=== PATIENT | male | born 1985 | race American Indian/Alaskan Native ===

== ENCOUNTER 2017-03-11 10:52 | Emergency (ER) | payer OTHER ==
--- NOTE | 2017-03-11 11:45 | XRay Report ---
LEFT KNEE THREE VIEWS: 03/11/17 10:52:00 CLINICAL: Left knee pain and swelling. FINDINGS: No fracture or dislocation. Mild patellofemoral joint arthritis with small osteophytes. The medial and lateral joint spaces are normal. No joint effusion. The soft tissues are normal. IMPRESSION: Patellofemoral joint arthritis.
--- NOTE | 2017-03-11 14:28 | Emergency Department Report ---
ED Lower Extremity HPI - General Chief Complaint: Extremity Injury, Lower Stated Complaint: SWOLLEN KNEE Time Seen by Provider: 03/11/17 13:50 Source: patient Mode of arrival: Ambulatory Limitations: No Limitations - History of Present Illness Initial Comments: Patient comes in the ER today with complaints of left knee pain. Patient states that he was skating 2 days ago and thinks he injured his left knee when he fell. Patient has been able to walk on his knee since but states that is very unstable and feel like he wants to give out on him when he gets out of his car or when he goes up and down steps. Complaint: knee injury -: Sudden, days(s) (2) - Related Data Previous Rx's Medication Instructions Recorded Last Taken Type Naproxen [Naprosyn TAB] 500 mg PO BID #20 tablet 03/11/17 Unknown Rx traMADol [Ultram 50 MG tab] 50 mg PO Q6HR PRN #20 tablet 03/11/17 Unknown Rx Allergies Allergy/AdvReac Type Severity Reaction Status Date / Time No Known Allergies Allergy Verified 03/11/17 11:04 ED Review of Systems ROS: Stated complaint: SWOLLEN KNEE Other details as noted in HPI Constitutional: denies: chills, fever Eyes: denies: eye pain, eye discharge, vision change ENT: denies: ear pain, throat pain Respiratory: denies: cough, shortness of breath, wheezing Cardiovascular: denies: chest pain, palpitations Endocrine: no symptoms reported Gastrointestinal: denies: abdominal pain, nausea, diarrhea Genitourinary: denies: urgency, dysuria Musculoskeletal: joint swelling, arthralgia. denies: back pain Skin: denies: rash, lesions Neurological: denies: headache, weakness, paresthesias Psychiatric: denies: anxiety, depression Hematological/Lymphatic: denies: easy bleeding, easy bruising ED Past Medical Hx - Past Medical History Previous Medical History?: No Additional medical history: rhabdomylosis - Surgical History Past Surgical History?: No - Social History Smoking Status: Never Smoker Substance Use Type: None - Medications Home Medications: Home Medications Medication Instructions Recorded Confirmed Last Taken Type Naproxen [Naprosyn TAB] 500 mg PO BID #20 tablet 03/11/17 Unknown Rx traMADol [Ultram 50 MG tab] 50 mg PO Q6HR PRN #20 tablet 03/11/17 Unknown Rx ED Physical Exam - General Limitations: No Limitations General appearance: alert, in no apparent distress - Head Head exam: Present: atraumatic, normocephalic - Eye Eye exam: Present: normal appearance - ENT ENT exam: Present: mucous membranes moist - Neck Neck exam: Present: normal inspection - Respiratory Respiratory exam: Present: normal lung sounds bilaterally. Absent: respiratory distress - Cardiovascular Cardiovascular Exam: Present: regular rate, normal rhythm. Absent: systolic murmur, diastolic murmur, rubs, gallop - GI/Abdominal GI/Abdominal exam: Present: soft, normal bowel sounds - Rectal Rectal exam: Present: deferred - Extremities Exam Extremities exam: Present: normal inspection, tenderness (tenderness noted more on lateral collateral ligament with additional tenderness noted on medial and lateral anterior joint line.), normal capillary refill, other (pain is worsened with left knee Willem stress testing as well as valgus and varus stress testing.). Absent: full ROM (Limited range of motion with flexion secondary to pain), pedal edema, calf tenderness - Back Exam Back exam: Present: normal inspection, full ROM. Absent: tenderness - Neurological Exam Neurological exam: Present: alert, oriented X3, CN II-XII intact - Psychiatric Psychiatric exam: Present: normal affect, normal mood - Skin Skin exam: Present: warm, dry, intact, normal color. Absent: rash ED Course Vital Signs 03/11/17 10:59 Temperature 97.9 F Pulse Rate 70 Respiratory 18 Rate Blood Pressure 125/79 O2 Sat by Pulse 100 Oximetry ED Lower Extremity MDM - Radiology Data Radiology results: report reviewed No acute bone pathology noted on left knee x-ray - Medical Decision Making Patient is nontoxic and hemodynamically stable. Patient placed in left knee immobilizer as well as given and instructed on use of crutches here in the ER. I will refer patient to orthopedics for further evaluation. Patient is in agreement with treatment plan the patient is stable for discharge. Critical care attestation.: If time is entered above; I have spent that time in minutes in the direct care of this critically ill patient, excluding procedure time. ED Disposition Clinical Impression: Sprain of unspecified site of left knee, initial encounter Disposition: DC- TO HOME OR SELFCARE Is pt being admited?: No Does the pt Need Aspirin: No Condition: Good Instructions: Crutch Instructions (ED), Knee Sprain (ED), Knee Immobilizer (ED) Prescriptions: Naproxen [Naprosyn TAB] 500 mg PO BID #20 tablet traMADol [Ultram 50 MG tab] 50 mg PO Q6HR PRN #20 tablet PRN Reason: Pain Referrals: BLAKE VELAZQUEZ MD [Staff Physician] - 3-5 Days [facility] [Provider Group] - 3-5 Days [facility] [Provider Group] - 3-5 Days Forms: Work/School Release Form(ED) Time of Disposition: 14:29
[2017-03-11 15:05] VITALS: BP 142/87
== END 2017-03-11 15:04 | disposition home or self-care (01) ==
LOC: ED 10:52
DX: S83.92XA Sprain of unspecified site of left knee, initial encounter (principal); W18.30XA Fall on same level, unspecified, initial encounter; Y93.9 Activity, unspecified; Y92.89 Other specified places as the place of occurrence of the external cause; Y99.9 Unspecified external cause status
CPT/HCPCS: 99284